=== PATIENT | male | born 1960 | race African-American/Black ===

== ENCOUNTER 2017-04-02 04:26 | Emergency (ER) | payer OTHER ==
[~2017-04-02] VITALS: Ht 177.8 cm; Wt 82.0 kg
[2017-04-02] MEDS ORDERED: ONDANSETRON HCL 4MG/2ML VIAL IV STA (05:10)
[2017-04-02] MEDS ORDERED: SODIUM CHLORIDE 0.9% 1,000 ML IV ONE ×2 (05:10→06:12)
[2017-04-02] MEDS ORDERED: MORPHINE SULFATE 4 MG/ML CPJ (NOT FOR IM USE) IV STA (05:10)
[2017-04-02 05:29] LABS: HEMATOCRIT. 46.1 % (42.0-52.0); HEMOGLOBIN. 15.5 g/dL (14.0-18.0); MEAN CORPUSCULAR HEMOGLOBIN 27.3 pg (28.0-32.0); MEAN CORPUSCULAR VOLUME 81.4 fL (80.0-94.0); MEAN PLATELET VOLUME 7.3 fl (7.4-10.4); PLATELET 261 x1000/uL (130-400); RED BLOOD CELL COUNT 5.66 mill/uL (4.7-6.1); RED CELL DISTRIBUTION WIDTH 15.1 % (11.6-14.6)
[2017-04-02 05:33] LABS: CHLORIDE 101 mEq/L (98-107)
[2017-04-02 05:42] LABS: CARBON DIOXIDE 28 mEq/L (21-32)
[2017-04-02 06:52] LABS: PLATELET ESTIMATE NORMAL
[2017-04-02 07:27] VITALS: BP 142/97
== END 2017-04-02 08:40 | disposition left against medical advice (07) ==
LOC: ER 04:26
DX: R33.9 Retention of urine, unspecified (principal); R55 Syncope and collapse; R50.9 Fever, unspecified
CPT/HCPCS: 36415; 51702; 74176; 80053; 85025; 96361; 96374; 96375; 99285; J2270; J2405; J7030; A4315